=== PATIENT | female | born 1975 | race Caucasian/White ===

== ENCOUNTER → 2018-05-14 | Outpatient (CLI) | payer BC | END | disposition home or self-care (01) | LOC: LAB SHORT 10:47 → PLD 10:47 | DX: C44.719 Basal cell carcinoma of skin of left lower limb, including hip (principal) | CPT/HCPCS: 88305 ==

== ENCOUNTER → 2019-05-20 | Outpatient (CLI) | payer BC | END | disposition home or self-care (01) | LOC: LAB SHORT 12:32 → PLD 12:32 | DX: D22.5 Melanocytic nevi of trunk (principal); C44.311 Basal cell carcinoma of skin of nose | CPT/HCPCS: 88305 ==

== ENCOUNTER → 2019-11-30 | Outpatient (CLI) | payer BC | END | disposition home or self-care (01) | LOC: PLD 13:14 → LAB SHORT 13:14 | DX: D22.5 Melanocytic nevi of trunk (principal) | CPT/HCPCS: 88305 ==

== ENCOUNTER → 2021-06-19 | Outpatient (CLI) | payer BC | END | disposition home or self-care (01) | LOC: LAB 11:07 → LAB SHORT 11:07 | DX: D22.72 Melanocytic nevi of left lower limb, including hip (principal); C44.712 Basal cell carcinoma of skin of right lower limb, including hip | CPT/HCPCS: 88305 ==

== ENCOUNTER → 2021-11-12 | Outpatient (CLI) | payer BC | END | disposition home or self-care (01) | LOC: PLD 14:55 → LAB SHORT 14:55 | DX: C44.719 Basal cell carcinoma of skin of left lower limb, including hip (principal); L57.0 Actinic keratosis | CPT/HCPCS: 88305 ==

== ENCOUNTER → 2023-10-07 | Outpatient (CLI) | payer OTHER | LOC: PLD 13:21 → LAB SHORT 13:21 | DX: C44.719 Basal cell carcinoma of skin of left lower limb, including hip (principal) | CPT/HCPCS: 88305 ==